=== PATIENT | female | born 1945 | race Caucasian/White ===

== ENCOUNTER → 2018-03-24 14:52 | Outpatient (CLI) | payer MEDICARE, OTHER, SELFPAY ==
--- NOTE | 2018-03-24 14:55 | DI.RAD.S_ITS ---
PROCEDURE: XR FOOT LT MIN 3V INDICATIONS: foot/ankle pain TECHNIQUE: 3 views of the foot were acquired. COMPARISON: None. FINDINGS: Bones: No fractures or dislocations. No suspicious bony lesions. Soft tissues: No tibiotalar joint effusion. Achilles tendon appears normal. IMPRESSION: Moderate osteoarthritis of the first MTP joint, no trauma found, no stress fracture suspected. Dictated by: Maikol Sharif M.D. on 03/24/2018 at 15:30 Approved by: Maikol Sharif M.D. on 03/24/2018 at 15:30
--- NOTE | 2018-03-24 14:55 | DI.RAD.S_ITS ---
PROCEDURE: XR ANKLE LT MIN 3V INDICATIONS: foot/ankle pain TECHNIQUE: 3 views of the ankle were acquired. COMPARISON: [facility], CR, XR FOOT LT MIN 3V, 03/24/2018, 14:38. FINDINGS: Bones: No fractures or dislocations. Ankle mortise is normally aligned. No suspicious bony lesions. Soft tissues: No tibiotalar joint effusion. Achilles tendon appears normal. IMPRESSION: No trauma found. Dictated by: Maikol Sharif M.D. on 03/24/2018 at 15:29 Approved by: Maikol Sharif M.D. on 03/24/2018 at 15:30
== END ==
PROVIDERS: Family Provider Physician Assistant; PCP Physician Assistant; Visit Provider Nurse Practitioner Family
DX: M25.572 Pain in left ankle and joints of left foot (principal); M19.072 Primary osteoarthritis, left ankle and foot
CPT/HCPCS: 73610; 73630

== ENCOUNTER → 2019-12-31 10:52 | Outpatient (CLI) | payer MEDICARE, SELFPAY ==
[2019-12-31 11:12] LABS: Add Manual Diff / Slide Review NO; Basophils Absolute Auto 100 /uL (0-100); Basophils Percent Auto 1.3 % (0-2); Eosinophils Absolute Auto 300 /uL (0-450); Eosinophils Percent Auto 5.3 % (2-4); Hematocrit 37.8 % (36-46); Hemoglobin 12.9 g/dL (12.0-16.0); Lymphocytes Absolute Auto 1600 /uL (1100-4500); Lymphocytes Percent Auto 33.4 % (25-40); Mean Corpuscular HGB Conc 34.1 % (30-36); Mean Corpuscular Hemoglobin 31.9 PG (26-34); Mean Corpuscular Volume 93.8 fL (80-100); Monocytes Absolute Auto 400 /uL (0-900); Monocytes Percent Auto 9.1 % (3-14); Neutrophils Absolute Auto 2400 /uL (1500-7000); Neutrophils Percent Auto 50.9 % (50-75); Platelet Count 285 X10^3/uL (150-400); Red Blood Cell Count 4.03 X10^6/uL (4.0-5.2); Red Cell Distribution Width 12.4 % (11.6-14.8); White Blood Cell Count 4.8 X10^3/uL (4.5-11.0)
[2019-12-31 11:22] LABS: Alanine Aminotransferase 17 IU/L (<35); Albumin 4.4 g/dL (3.5-5.0); Albumin Globulin Ratio 1.6 (1.0-2.8); Alkaline Phosphatase 79 U/L (38-126); Appearance Urine UA CLEAR; Aspartate Aminotransferase 27 IU/L (14-36); BUN Creatinine Ratio 27.8 (6-22); Bilirubin Total 0.6 mg/dL (0.2-1.3); Bilirubin Urine UA NEGATIVE (NEGATIVE); Blood Urea Nitrogen 20 mg/dL (7-17); Calcium 9.3 mg/dL (8.4-10.2); Carbon Dioxide 27 mmol/L (22-32); Chloride 101 mmol/L (98-107); Cholesterol 234 mg/dL (140-199); Color Urine UA YELLOW; Estimated Glomerular Filt Rate > 60.0 mL/min (>60); Globulin 2.8 g/dL (1.7-4.1); Glucose 94 mg/dL (80-110); Glucose Urine UA NEGATIVE (Negative); HDL Cholesterol 82 mg/dL (40-60); HEMOLYSIS < 15 (0-50); Ketones Urine UA NEGATIVE (NEGATIVE); LDL Cholesterol Calculated 135 mg/dL (<100); Leukocyte Esterase Urine UA NEGATIVE (NEGATIVE); Nitrite Urine UA NEGATIVE (Negative); Occult Blood Urine UA TRACE-LYSED (Negative); Potassium 4.2 mmol/L (3.4-5.1); Protein Urine UA NEGATIVE (Negative); Sodium 135 mmol/L (137-145); Total Protein 7.2 g/dL (6.3-8.2); Triglycerides 87 mg/dL (35-150); Urobilinogen Urine UA 0.2 E.U./dL (0.2)
[2019-12-31 11:25] LABS: pH Urine UA 7.5 (4.5-8.0)
== END ==
PROVIDERS: Family Provider Physician Assistant; PCP Registered Nurse; Referring Provider Registered Nurse; Visit Provider Registered Nurse
DX: M81.0 Age-related osteoporosis without current pathological fracture (principal); I10 Essential (primary) hypertension; E78.5 Hyperlipidemia, unspecified
CPT/HCPCS: 36415; 80053; 80061; 81003; 85025

== ENCOUNTER → 2020-01-14 12:56 | Outpatient (CLI) | payer MEDICARE, SELFPAY | PROVIDERS: Family Provider Physician Assistant; PCP Registered Nurse; Referring Provider Registered Nurse; Visit Provider Registered Nurse | DX: M81.0 Age-related osteoporosis without current pathological fracture (principal); Z78.0 Asymptomatic menopausal state; Z82.62 Family history of osteoporosis; Z87.891 Personal history of nicotine dependence | CPT/HCPCS: 77080 ==

== ENCOUNTER → 2020-01-18 09:13 | Outpatient (CLI) | payer MEDICARE, SELFPAY ==
[2020-01-19 11:11] LABS: Fecal Immunochemical Test Negative (Negative)
== END ==
PROVIDERS: Family Provider Physician Assistant; PCP Registered Nurse; Referring Provider Registered Nurse; Visit Provider Registered Nurse
DX: Z12.11 Encounter for screening for malignant neoplasm of colon (principal)
CPT/HCPCS: 82274

== ENCOUNTER → 2020-02-05 13:58 | Outpatient (CLI) | payer MEDICARE, SELFPAY ==
[2020-02-05 16:06] LABS: Vitamin D 25 Hydroxy (D3) 52.9 ng/mL (30.0-100.0)
== END ==
PROVIDERS: Family Provider Physician Assistant; PCP Registered Nurse; Referring Provider Registered Nurse; Visit Provider Registered Nurse
DX: M81.0 Age-related osteoporosis without current pathological fracture (principal)
CPT/HCPCS: 36415; 82306

== ENCOUNTER → 2020-02-11 08:49 | Outpatient (CLI) | payer MEDICARE, SELFPAY ==
--- NOTE | 2020-02-11 08:53 | DIET.PN ---
Dietary Progress Note Assessment: 74y F referred to nutrition for HLD (TC 234 H, LDL 135 H, HDL 82 H) and osteoporosis. Pt desires to make dietary changes to manage cholesterol before going on stains. HT: 5'2 WT: 135# UBW: 135# Labs: TC 234, LDL 135, HDL 82, Vit D 52 WNL Usual Day: 7:30am wakes has 2c black coffee 8am whole milk yogurt, berries and banana or eggs or toast c pb and jam goes to core class (45min) or yoga class and volunteering on Saturday, walks 3-4mi 2-3d/w, tries to bike 3d/w (20-40 miles/w) L: [employer] thin bread c avocado, cheese and lettuce Dinner(6pm): stir fries c chicken and veggies over rice or pasta, bison meatloaf or burgers, sweet potatoes, white rice 3x/w Sn: peanut butter, apple c banana Drinks 2 glasses wine/d Takes Bone Up calcium and K2 supplement each morning as well as D3. Nutrition Diagnosis: altered nutrition related laboratory values r/t insufficient intake of soluble fiber aeb TC 234, LDL 135, food recall low in soluble fiber foods. Interventions: 1. Discussed HLD physiology and factors which affect each number. Pt has high HDL giving her less wiggle room for TC to be WNL. Pt cholesterol and saturated fat intake is not of concern at this time, will focus on increasing soluble fiber in diet. 2. Educated pt on sources of soluble fiber and collaborated c pt on ways to increase in diet. Pt feels her lunches are weak and just thrown together so will target lunchtime meal for increased soluble fiber intake in the form of: beans/lentils, berries, oats, quinoa. Pt has goal to consume 20g soluble fiber daily. 3. Discussed osteoporosis. Pt is doing weight bearing activity and taking appropriate supplements. Pt goal is 1200mg calcium per day through combination of food and supplements. Pt will do food diary for a week to assess calcium intake through food and will make adjustments whether increasing calcium foods or increasing supplement amount. Pt will experiment with taking supps in evening as she eats high calcium breakfast which may be limiting total absorption in stomach as we only absorb 300-500mg at a time. EER: 1200mg calcium, 20g fiber Monitoring/Evaluations: pt will get lipid panel in 6mo and will schedule f/u if needed.
== END ==
PROVIDERS: Family Provider Physician Assistant; PCP Registered Nurse; Referring Provider Registered Nurse; Visit Provider Registered Nurse
DX: E78.5 Hyperlipidemia, unspecified (principal); M81.0 Age-related osteoporosis without current pathological fracture
CPT/HCPCS: 97802

== ENCOUNTER → 2020-07-14 07:40 | Outpatient (CLI) | payer MEDICARE, SELFPAY ==
[2020-07-14] MEDS: COVID-19 VACC #1, MRNA(MOD) 100 MCG/0.5 ML VIAL IM (07:52)
== END ==
PROVIDERS: Family Provider Physician Assistant; PCP Registered Nurse; Visit Provider Internal Medicine
DX: Z23 Encounter for immunization (principal)
CPT/HCPCS: 0011A; 91301

== ENCOUNTER → 2020-08-11 07:34 | Outpatient (CLI) | payer MEDICARE, SELFPAY ==
[2020-08-11] MEDS: COVID-19 VACC #2, MRNA(MOD) 100 MCG/0.5 ML VIAL IM (07:58)
== END ==
PROVIDERS: Family Provider Physician Assistant; PCP Registered Nurse; Visit Provider Internal Medicine
DX: Z23 Encounter for immunization (principal)
CPT/HCPCS: 0012A; 91301

== ENCOUNTER → 2020-09-19 10:18 | Outpatient (CLI) | payer MEDICARE, SELFPAY ==
--- NOTE | 2020-09-19 | DI.MG.S_ITS ---
BILATERAL DIGITAL SCREENING MAMMOGRAM 3D/2D WITH CAD: 09/19/2020 CLINICAL: Routine screening. Comparison is made to exams dated: 09/17/2017 mammogram, 09/08/2015 mammogram, 10/08/2013 mammogram, 04/10/2012 mammogram, and 04/04/2009 mammogram - [facility]. There are scattered fibroglandular elements in both breasts. Current study was also evaluated with a Computer Aided Detection (CAD) system. No significant masses, calcifications, or other findings are seen in either breast. There has been no significant interval change. IMPRESSION: NEGATIVE There is no mammographic evidence of malignancy. A 1 year screening mammogram is recommended. This exam was interpreted at Station ID: [id number]. NOTE: For mammograms, a report in lay terms will be sent to the patient. Approximately 15% of breast malignancies will not be visualized mammographically. In the management of a palpable breast mass, a negative mammogram must not discourage biopsy of a clinically suspicious lesion. Electronically Signed By: Eddie stephen/riley:09/19/2020 11:59:42 letter sent: Normal Exam ACR BI-RADS Category 1: Negative 3341F
== END ==
PROVIDERS: Family Provider Physician Assistant; PCP Registered Nurse; Referring Provider Registered Nurse; Visit Provider Registered Nurse
DX: Z12.31 Encounter for screening mammogram for malignant neoplasm of breast (principal)
CPT/HCPCS: 77063; 77067

== ENCOUNTER → 2021-02-10 09:02 | Outpatient (CLI) | payer MEDICARE, SELFPAY ==
[2021-02-10 09:55] LABS: Add Manual Diff / Slide Review NO; Basophils Absolute Auto 100 /uL (0-100); Basophils Percent Auto 1.2 % (0-2); Eosinophils Absolute Auto 400 /uL (0-450); Eosinophils Percent Auto 7.7 % (2-4); Hematocrit 36.9 % (36-46); Hemoglobin 12.3 g/dL (12.0-16.0); Lymphocytes Absolute Auto 1600 /uL (1100-4500); Lymphocytes Percent Auto 34.5 % (25-40); Mean Corpuscular HGB Conc 33.3 % (30-36); Mean Corpuscular Hemoglobin 31.5 PG (26-34); Mean Corpuscular Volume 94.6 fL (80-100); Monocytes Absolute Auto 500 /uL (0-900); Monocytes Percent Auto 9.7 % (3-14); Neutrophils Absolute Auto 2200 /uL (1500-7000); Neutrophils Percent Auto 46.9 % (50-75); Platelet Count 271 X10^3/uL (150-400); Red Cell Distribution Width 12.4 % (11.6-14.8); White Blood Cell Count 4.6 X10^3/uL (4.5-11.0)
[2021-02-10 10:21] LABS: Alanine Aminotransferase 19 IU/L (<35); Albumin Globulin Ratio 1.4 (1.0-2.8); Alkaline Phosphatase 69 U/L (38-126); Aspartate Aminotransferase 30 IU/L (14-36); BUN Creatinine Ratio 34.9 (6-22); Bilirubin Total 0.6 mg/dL (0.2-1.3); Blood Urea Nitrogen 22 mg/dL (7-17); Carbon Dioxide 27 mmol/L (22-32); Chloride 103 mmol/L (98-107); Cholesterol 236 mg/dL (140-199); Estimated Glomerular Filt Rate > 60.0 mL/min (>60); Globulin 2.9 g/dL (1.7-4.1); Glucose 84 mg/dL (80-110); HDL Cholesterol 74 mg/dL (40-60); HEMOLYSIS < 15 (0-50); LDL Cholesterol Calculated 148 mg/dL (<100); Potassium 4.6 mmol/L (3.4-5.1); Sodium 134 mmol/L (137-145); Total Protein 6.9 g/dL (6.3-8.2); Triglycerides 71 mg/dL (35-150)
[2021-02-10 10:37] LABS: Vitamin D 25 Hydroxy (D3) 55.6 ng/mL (30.0-100.0)
[2021-02-10 10:50] LABS: TSH w/ Reflex to FT4 2.67 uIU/mL (0.47-4.68)
== END ==
PROVIDERS: Family Provider Physician Assistant; PCP Registered Nurse; Referring Provider Registered Nurse; Visit Provider Registered Nurse
DX: R53.83 Other fatigue (principal); I10 Essential (primary) hypertension; M81.0 Age-related osteoporosis without current pathological fracture; E78.5 Hyperlipidemia, unspecified
CPT/HCPCS: 36415; 80053; 80061; 82306; 84443; 85025

== ENCOUNTER → 2021-02-14 12:31 | Outpatient (CLI) | payer MEDICARE, SELFPAY ==
--- NOTE | 2021-02-14 12:33 | DI.US.S_ITS ---
PROCEDURE: US CAROTID DOPPLER BI INDICATIONS: lightheadedness TECHNIQUE: Color and pulse Doppler interrogation was performed of both carotid systems, with image documentation and velocity measurements. COMPARISON: None. FINDINGS: Stenosis calculations are based on SRU (Society of Radiologists in Ultrasound) criteria. The flow velocities and the arterial waveforms are normal within both carotid arterial systems. The estimated degree of internal carotid artery stenosis is less than 50%. Antegrade flow is confirmed within both vertebral arteries. IMPRESSION: Normal. Dictated by: Ministerio Elliott M.D. on 02/14/2021 at 13:52 Approved by: Ministerio Elliott M.D. on 02/14/2021 at 13:53
== END ==
PROVIDERS: Family Provider Physician Assistant; PCP Registered Nurse; Referring Provider Registered Nurse; Visit Provider Registered Nurse
DX: R42 Dizziness and giddiness (principal)
CPT/HCPCS: 93880

== ENCOUNTER → 2022-02-13 11:54 | Outpatient (CLI) | payer MEDICARE, SELFPAY | PROVIDERS: Family Provider Physician Assistant; PCP Nurse Practitioner; Referring Provider Nurse Practitioner; Visit Provider Nurse Practitioner | DX: I10 Essential (primary) hypertension (principal) | CPT/HCPCS: 93005 ==

== ENCOUNTER → 2022-02-15 07:55 | Outpatient (CLI) | payer MEDICARE, SELFPAY ==
[2022-02-15 09:28] LABS: Alanine Aminotransferase 15 IU/L (<35); Albumin Globulin Ratio 1.5 (1.0-2.8); Alkaline Phosphatase 69 U/L (38-126); Aspartate Aminotransferase 26 IU/L (14-36); BUN Creatinine Ratio 21.9 (6-22); Bilirubin Total 0.4 mg/dL (0.2-1.3); Blood Urea Nitrogen 16 mg/dL (7-17); Calcium 8.9 mg/dL (8.4-10.2); Carbon Dioxide 29 mmol/L (22-32); Chloride 103 mmol/L (98-107); Cholesterol 205 mg/dL (140-199); Estimated Glomerular Filt Rate > 60 mL/min (>60); Globulin 2.7 g/dL (1.7-4.1); Glucose 81 mg/dL (80-110); HDL Cholesterol 76 mg/dL (40-60); HEMOLYSIS < 15 (0-50); LDL Cholesterol Calculated 116 mg/dL (<100); Potassium 4.6 mmol/L (3.4-5.1); Sodium 136 mmol/L (137-145); Total Protein 6.7 g/dL (6.3-8.2); Triglycerides 67 mg/dL (35-150)
[2022-02-15 09:30] LABS: Microalbumin Urine Random < 0.6 mg/dL (0-1.6)
[2022-02-15 09:40] LABS: Free T3, Triiodothyronine Free 3.16 pg/mL (2.77-5.27); Free T4, Direct Thyroxine 1.01 ng/dL (0.78-2.19)
[2022-02-15 09:54] LABS: Thyroid Stimulating Hormone 3.35 uIU/mL (0.47-4.68)
[2022-02-16 16:22] LABS: Hep C Virus Ab w/Reflex Quant NEGATIVE s/c (NEGATIVE)
== END ==
PROVIDERS: Family Provider Physician Assistant; PCP Nurse Practitioner; Referring Provider Nurse Practitioner; Visit Provider Nurse Practitioner
DX: E78.5 Hyperlipidemia, unspecified (principal); Z79.899 Other long term (current) drug therapy; Z11.59 Encounter for screening for other viral diseases; I10 Essential (primary) hypertension
CPT/HCPCS: 36415; 80053; 80061; 82043; 82570; 84439; 84443; 84481; 86803

== ENCOUNTER → 2022-02-27 14:13 | Outpatient (CLI) | payer MEDICARE, SELFPAY ==
--- NOTE | 2022-02-27 | DI.MG.S_ITS ---
BILATERAL DIGITAL SCREENING MAMMOGRAM 3D/2D WITH CAD: 02/27/2022 CLINICAL: Routine screening. Comparison is made to exams dated: 09/19/2020 mammogram and 09/17/2017 mammogram - [facility]. There are scattered areas of fibroglandular density in both breasts (category b / 25%-50% glandular tissue). Current study was also evaluated with a Computer Aided Detection (CAD) system. No significant masses, calcifications, or other findings are seen in either breast. There has been no significant interval change. IMPRESSION: NEGATIVE There is no mammographic evidence of malignancy. A 1 year screening mammogram is recommended. Based on the Tyrer Cuzick model (a risk assessment model) the patient's lifetime risk is 3.2% and her 10 year risk is 3.2%. According to the ACR, ACS, and NCCN guidelines, an annual breast MRI exam along with mammogram is recommended if the patient's lifetime risk is 20% or greater. This exam was interpreted at Station ID: [id number]. NOTE: For mammograms, a report in lay terms will be sent to the patient. Approximately 15% of breast malignancies will not be visualized mammographically. In the management of a palpable breast mass, a negative mammogram must not discourage biopsy of a clinically suspicious lesion. Electronically Signed By: Bony slater/riley:02/27/2022 16:54:31 letter sent: Normal Exam ACR BI-RADS Category 1: Negative 3341F
== END ==
PROVIDERS: Family Provider Physician Assistant; PCP Nurse Practitioner; Referring Provider Nurse Practitioner; Visit Provider Nurse Practitioner
DX: Z12.31 Encounter for screening mammogram for malignant neoplasm of breast; M81.0 Age-related osteoporosis without current pathological fracture
CPT/HCPCS: 77063; 77067; 77080

== ENCOUNTER → 2022-03-22 09:02 | Outpatient (CLI) | payer MEDICARE, SELFPAY ==
--- NOTE | 2022-03-22 09:03 | DI.ECHO.S_ITS ---
[facility]---------+ [facility] +---------+ : : [address] : : : : [id number] : : : : Phone: [phone] +---------+ Echocardiogram Report + + :Name: MARY ELLEN SILVA Study Date: 03/22/2022 Height: 62 in : :[facility] ReadingLocation: Weight: 132 lb : : Gender: Female BSA: 1.6 m2 : :: 1945 Age: 76 yrs BP: 152/84 mmHg: :Reason For Study: Hypertension : :Ordering Physician: ELIZABETH, : :TATIANA Performed By: Allan Cadet : :Referring: TATIANA JOHNSON : + + Interpretation Summary The ejection fraction is estimated to be 55-60%. There is mild mitral regurgitation. There is no pericardial effusion. Procedure: A two-dimensional transthoracic echocardiogram with color flow and Doppler was performed. The study quality was technically adequate. There is no prior echocardiogram noted for this patient. The patient was in normal sinus rhythm during the exam. Left Ventricle: The left ventricle is normal in size and wall thickness. Left ventricular systolic function is normal. The ejection fraction is estimated to be 55-60%. There are no focal wall motion abnormalities. Diastolic parameters suggest probable normal left ventricular diastolic function and normal filling pressures. Right Ventricle: The right ventricle is normal in size and function. Atria: Both atria are normal in size. The interatrial septum grossly appears intact with no obvious evidence for an atrial septal defect. Mitral Valve: The mitral valve is normal in structure and function. There is mild mitral regurgitation. Aortic Valve: The aortic valve is normal in structure and function. No aortic regurgitation is present. Tricuspid Valve: The tricuspid valve is normal in structure and function. There is mild tricuspid regurgitation. Pulmonary artery pressures cannot be estimated because of the lack of a measurable TR jet velocity. Pulmonic Valve: The pulmonic valve is normal in structure and function. There is no pulmonic valvular regurgitation. Great Vessels: The aortic root is normal size. The dimensions of the ascending aorta are normal. The IVC is of normal diameter and collapses greater than 50% with a sniff. This suggests a low right atrial pressure of 3 mm Hg. Pericardium/ Pleura There is no pericardial effusion. There is no pleural effusion. MMode/2D Measurements & Calculations LVIDd: 4.8 cm LVOT diam: 1.9 cm LVIDs: 3.3 cm Ao root diam: 3.0 cm FS: 31.3 % asc Aorta Diam: 2.8 cm IVSd: 0.80 cm LVPWd: 0.90 cm LV garsia. diameter/BSA (cm/m^2): 3.0 LV sys. diameter/BSA (cm/m^2): 2.1 LA dimension: 3.2 cm RA long axis: 4.9 cm LA A2 area: 17.4 cm2 LA A4 area: 16.9 cm2 LA length (vol): 5.0 cm LA vol: 50.2 ml LA vol index: 31.3 ml/m2 TAPSE_phl: 3.2 cm Doppler Measurements & Calculations Ao V2 max: 175.0 cm/sec LVOT Max Earnest: 154.0 cm/sec Ao V2 mean: 122.0 cm/sec LV V1 max P.5 mmHg Ao max P.0 mmHg LV V1 VTI: 33.3 cm Ao mean P.0 mmHg SHYANNE(I,D): 2.4 cm2 Ao V2 VTI: 39.8 cm SHYANNE(V,D): 2.5 cm2 sev ratio: 0.84 SHYANNE indexed to BSA (cm^2/m^2): 1.5 MV E max earnest: 88.8 cm/sec SV(LVOT): 94.4 ml MV A max earnest: 82.9 cm/sec MV E/A: 1.1 Med Peak E' Earnest: 8.1 cm/sec E/E' med: 10.9 Lat Peak E' Earnest: 11.6 cm/sec E/E' lat: 7.7 E/e' average: 9.3 MV dec time: 0.25 sec AV VR_phl: 0.88 MV P1/2t-pr_phl: 74.0 msec SHYANNE(VTI)/BSA_phl: 1.5 Reading Physician:02:18 PM
== END ==
PROVIDERS: Family Provider Physician Assistant; PCP Nurse Practitioner; Referring Provider Nurse Practitioner; Visit Provider Nurse Practitioner
DX: I08.1 Rheumatic disorders of both mitral and tricuspid valves (principal); I10 Essential (primary) hypertension
CPT/HCPCS: 93306

== ENCOUNTER → 2022-03-28 10:13 | Outpatient (CLI) | payer MEDICARE, SELFPAY ==
[2022-03-28 11:11] LABS: COVID19 -Nasal RAPID Negative (Negative)
== END ==
PROVIDERS: Family Provider Physician Assistant; PCP Nurse Practitioner; Visit Provider Surgery
DX: Z20.822 Contact with and (suspected) exposure to COVID-19 (principal); Z01.812 Encounter for preprocedural laboratory examination
CPT/HCPCS: 87635; C9803

== ENCOUNTER 2022-03-29 08:59 | Day surgery (SDC) | payer MEDICARE, SELFPAY ==
[2022-03-29 09:11] VITALS: BP 160/77; PULSE 54; RESP 15; TEMP 36.3; O2SAT 100; BMI 23.8
[2022-03-29] MEDS: LACTATED RINGERS 1,000 ML 84 ML IV (09:31)
--- NOTE | 2022-03-29 10:13 | PM.HP.1 ---
History of Present Illness History of Present Illness Date Patient Seen: 03/29/22 Time Patient Seen: 10:13 Chief complaint: Colonoscopy Narrative: Ashlyn is a 76-year-old woman who had a colonoscopy about 10 years ago that was normal. She has no known family history of colon cancer. Patient History Medical History Lightheadedness Osteopenia (~10/2006) Osteoporosis (09/13/15) Osteoporosis (~03/2012) Post-menopausal osteoporosis Wrist fracture, left (09/2017) Surgical History H/O arthroscopy of knee (Unknown) History of bilateral tubal ligation (Unknown) S/P wrist surgery (09/2017) Family & Social History Social History: household members spouse Tobacco & Substance use: Smoking Status Former smoker alcohol intake current alcohol intake frequency 0-2 drinks per day Substance Use Type does not use Meds Home Medications and Allergies Home Medications Medication Instructions Recorded Confirmed Type Gentian See Rx Instructions .Route 02/13/22 03/29/22 History .COMPLEX PRN food absorption Vitamin D3 See Rx Instructions .Route .COMPLEX 02/13/22 03/29/22 History calcium See Rx Instructions .Route .COMPLEX 02/13/22 03/29/22 History losartan 50 mg tablet 50 mg PO DAILY #90 tabs 02/13/22 03/29/22 Rx magnesium citrate 133 mg PO .HS insomni 02/13/22 03/29/22 History sodium sul 1.479 gram-potas ch See Rx Instructions PO PER PKG DIR 03/19/22 Rx 0.188 gram-magnes sul 0.225 gram #24 tabs tablet (Sutab) Allergies Allergy/AdvReac Type Severity Reaction Status Date / Time No Known Drug Allergies Allergy Verified 03/29/22 09:26 Exam Vital Signs (past 8 hours): - 03/29/22 09:11 Temperature 97.4 F L Pulse Rate 54 L Respiratory Rate 15 Blood Pressure 160/77 H Pulse Oximetry 100 Oxygen Delivery Method Room Air Oxygen Delivery Method Room Air Const General: healthy appearing Assessment & Plan Assessment and plan (1) Colon cancer screening: Status: Acute Plan 76-year-old woman here for colon cancer screening. We reviewed the risks and benefits of colonoscopy and she would like to proceed. Time Spent With Patient Critical Care time: I spent a total of [] minutes of critical care time on this patient's care today; this time is exclusive of procedural time.
[2022-03-29] MEDS: fentaNYL 100 MCG/2 ML INJ 175 MCG IV (10:43)
[2022-03-29] MEDS: MIDAZOLAM 5 MG/5 ML VIAL 7 MG IV (10:44)
--- NOTE | 2022-03-29 10:52 | PM.OP.COLON ---
Operative Date/Time/Diagnoses Date of procedure: 03/29/22 Time of procedure: 10:52 Pre-op diagnosis: Colon cancer screening Post-op diagnosis: same Procedure & Clinicians Study performed: Colonoscopy Same procedure as scheduled: Yes Surgeon: Patrick Husain Procedure Notes Procedure in detail: Surgeon: Patrick Husain MD Procedure: The patient was brought to the endoscopy suite, placed in left lateral decubitus position. The patient was connected to monitoring devices. A time-out was performed. Sedation was administered. Once the patient was adequately sedated, a digital rectal exam was performed and was normal. The scope was then inserted and advanced to the cecum where the appendiceal orifice was identified and photographed. The scope was then slowly withdrawn over greater than 6 minutes. The mucosa was thoroughly inspected. No polyps were found. The scope was retroflexed in the rectum. There were some internal hemorrhoids. The scope was straightened and removed. The patient was awakened and brought to recovery. Versed: 7 mg Fentanyl: 175 mcg EBL: 0 Findings: Normal colon Scope withdrawal time: 7 Sedation minutes: 25 Post-procedure Disposition: PACU
[2022-03-29 10:53] VITALS: BP 122/69; PULSE 56; RESP 11; TEMP 35.9; O2SAT 98
[2022-03-29 10:58] VITALS: BP 126/72; PULSE 65; RESP 17; O2SAT 99
[2022-03-29 11:03] VITALS: BP 142/70; PULSE 53; RESP 16; O2SAT 99
[2022-03-29 11:08] VITALS: BP 138/89; PULSE 54; RESP 18; TEMP 36.2; O2SAT 97
--- NOTE | 2022-03-29 11:15 | SUR.PHASEII ---
Report received. VS stable. Patient reported feeling lightheaded upon HOB elevation. Will continue to monitor. Call light provided.
[2022-03-29 11:27] VITALS: BP 155/85; PULSE 58
== END 2022-03-29 11:27 | disposition home or self-care (01) ==
PROVIDERS: Family Provider Physician Assistant; PCP Nurse Practitioner; Referring Provider Surgery; Visit Provider Surgery
PROC: 0DJD8ZZ Inspection of Lower Intestinal Tract, Via Natural or Artificial Opening Endoscopic (ICD-10-PCS; CPT 45378; principal; 2022-03-29 10:00)
DX: Z12.11 Encounter for screening for malignant neoplasm of colon (principal); K64.8 Other hemorrhoids
CPT/HCPCS: G0121; 99152; 99153; J2250; J3010

== ENCOUNTER → 2022-11-02 10:11 | Outpatient (CLI) | payer MEDICARE, SELFPAY ==
--- NOTE | 2022-11-02 10:12 | DI.US.S_ITS ---
PROCEDURE: US ABDOMEN LIMITED INDICATIONS: LEFT INGUINAL LUMP TECHNIQUE: Real-time focused scanning was performed of the abdomen, with image documentation. COMPARISON: None. FINDINGS: There is a fascial defect in the left inguinal area measuring 1.8 cm in width with protrusion of fat and shadowing bowel gas. During Valsalva maneuver, there is further protrusion of intra-abdominal fat and air containing bowel. At rest, herniation of bowel partially reduces. There is no fluid in the hernia sac. IMPRESSION: 1. Fat, and small bowel containing, partially reducible, left inguinal hernia. There may be a chronic Wise's hernia given presence of shadowing at rest. 2. If further detail is needed, CT of the pelvis is recommended. Dictated by: Julissa Almeida M.D. on 11/02/2022 at 12:53 Approved by: Julissa Almeida M.D. on 11/02/2022 at 12:57
== END ==
PROVIDERS: Family Provider Physician Assistant; PCP Nurse Practitioner; Referring Provider Family Medicine; Visit Provider Family Medicine
DX: K40.90 Unilateral inguinal hernia, without obstruction or gangrene, not specified as recurrent (principal)
CPT/HCPCS: 76705

== ENCOUNTER → 2023-05-07 08:03 | Outpatient (CLI) | payer MEDICARE, SELFPAY ==
[2023-05-07 09:29] LABS: Alanine Aminotransferase 18 IU/L (<35); Albumin 4.1 g/dL (3.5-5.0); Albumin Globulin Ratio 1.5 (1.0-2.8); Alkaline Phosphatase 80 U/L (38-126); Aspartate Aminotransferase 25 IU/L (14-36); BUN Creatinine Ratio 28.8 (6-22); Bilirubin Total 0.7 mg/dL (0.2-1.3); Blood Urea Nitrogen 19 mg/dL (7-17); Calcium 9.4 mg/dL (8.4-10.2); Carbon Dioxide 28 mmol/L (22-32); Chloride 99 mmol/L (98-107); Cholesterol 235 mg/dL (140-199); Estimated Glomerular Filt Rate > 60 mL/min (>60); Globulin 2.8 g/dL (1.7-4.1); Glucose 82 mg/dL (80-110); HDL Cholesterol 81 mg/dL (40-60); HEMOLYSIS < 15 (0-50); LDL Cholesterol Calculated 136 mg/dL (<100); Potassium 4.6 mmol/L (3.4-5.1); Sodium 134 mmol/L (137-145); Total Protein 6.9 g/dL (6.3-8.2); Triglycerides 88 mg/dL (35-150)
[2023-05-07 09:53] LABS: Free T3, Triiodothyronine Free 3.34 pg/mL (2.77-5.27); Free T4, Direct Thyroxine 1.02 ng/dL (0.78-2.19)
[2023-05-07 10:06] LABS: Thyroid Stimulating Hormone 2.93 uIU/mL (0.47-4.68)
[2023-05-07 11:41] LABS: Microalbumi Creatinin Ratio Ur 11.3 ug/mg CR (<30); Microalbumin Urine Random 1.3 mg/dL (0-1.6)
== END ==
LOC: LAB 08:05 → RESP 08:06
PROVIDERS: Family Provider Physician Assistant; PCP Nurse Practitioner; Referring Provider Nurse Practitioner; Visit Provider Nurse Practitioner
DX: I10 Essential (primary) hypertension (principal); E78.5 Hyperlipidemia, unspecified; M81.0 Age-related osteoporosis without current pathological fracture; Z79.899 Other long term (current) drug therapy
CPT/HCPCS: 36415; 80053; 80061; 82043; 82570; 84439; 84443; 84481; 93005; 93010

== ENCOUNTER → 2023-05-28 08:08 | Outpatient (CLI) | payer MEDICARE, SELFPAY ==
--- NOTE | 2023-05-28 08:11 | DI.ECHO.S_ITS ---
[facility]---------+ [facility] +---------+ : : [address] : : : : [id number] : : : : Phone: [phone]---------+ Echocardiogram Report + + :Name: MARY ELLEN SILVA Study Date: 05/28/2023 Height: 62 in : :[facility] ReadingLocation: Weight: 135 lb : : Gender: Female BSA: 1.6 m2 : :: 1945 Age: 77 yrs BP: 132/76 mmHg: :Reason For Study: HYPERTENSION : :Ordering Physician: ELIZABETH, : :TATIANA Performed By: Adwoa Abel : :Referring: TATIANA JOHNSON : + + Interpretation Summary The left ventricle is normal in size and wall thickness. The ejection fraction is estimated to be 55-60%. Left ventricular wall motion is normal. Diastolic parameters suggest a relaxation abnormality of the left ventricle, consistent with probable normal filling pressures. The right ventricle is normal in size and function. The left atrium is mildly dilated. There is no significant valvular heart disease. The aortic root is normal size. The interatrial septum is aneurysmal but is grossly intact with no obvious evidence for an atrial septal defect. Procedure: A two-dimensional transthoracic echocardiogram with color flow and Doppler was performed. The study quality was technically adequate. Comparison is made with the echocardiogram of 03/22/2022. The patient was in sinus rhythm with heart rates between 58-76 bpm during the exam. Left Ventricle: The left ventricle is normal in size and wall thickness. The ejection fraction is estimated to be 55-60%. Left ventricular wall motion is normal. Diastolic parameters suggest a relaxation abnormality of the left ventricle, consistent with probable normal filling pressures. Right Ventricle: The right ventricle is normal in size and function. Atria: The left atrium is mildly dilated. Right atrial size is normal. The interatrial septum is aneurysmal but is grossly intact with no obvious evidence for an atrial septal defect. Mitral Valve: The mitral valve is normal in structure and function. There is trace mitral regurgitation. Aortic Valve: The aortic valve opens well. There is no aortic valve stenosis. No aortic regurgitation is present. Tricuspid Valve: The tricuspid valve is normal in structure and function. There is trace tricuspid regurgitation. Pulmonic Valve: The pulmonic valve leaflets are thin and pliable; valve motion is normal. There is a trace or physiologic amount of pulmonic regurgitation. There is no significant valvular heart disease. Great Vessels: The aortic root is normal size. The dimensions of the ascending aorta are normal. The IVC is of normal diameter and collapses greater than 50% with a sniff. This suggests a low right atrial pressure of 3 mm Hg. Pericardium/ Pleura There is no pericardial effusion. There is no pleural effusion. MMode/2D Measurements & Calculations LVIDd: 4.3 cm LVOT diam: 1.9 cm LVIDs: 2.7 cm Ao root diam: 2.8 cm FS: 37.3 % asc Aorta Diam: 3.1 cm IVSd: 0.96 cm Ao Arch Diam (Prox Trans): 2.4 cm LVPWd: 0.87 cm LV garsia. diameter/BSA (cm/m^2): 2.7 LV sys. diameter/BSA (cm/m^2): 1.7 LA A2 area: 21.7 cm2 RA long axis: 4.7 cm LA A4 area: 15.6 cm2 RA area: 14.8 cm2 LA length (vol): 5.0 cm RA vol: 39.6 ml LA vol: 57.7 ml RA : 24.5 ml/m2 LA vol index: 35.7 ml/m2 IVC diam: 1.0 cm RVD1 (basal): 3.6 cm RVD2 (mid): 2.7 cm TAPSE: 2.2 cm Doppler Measurements & Calculations Ao V2 max: 164.7 cm/sec LVOT Max Earnest: 125.4 cm/sec Ao V2 mean: 113.8 cm/sec LV V1 max P.3 mmHg Ao max P.8 mmHg LV V1 VTI: 25.9 cm Ao mean P.8 mmHg SHYANNE(I,D): 2.2 cm2 Ao V2 VTI: 32.0 cm SHYANNE(V,D): 2.1 cm2 sev ratio: 0.81 SHYANNE indexed to BSA (cm^2/m^2): 1.4 MV E max earnest: 60.2 cm/sec PA V2 max: 93.3 cm/sec MV A max earnest: 72.6 cm/sec PA V2 mean: 68.2 cm/sec MV E/A: 0.83 PA mean P.0 mmHg Med Peak E' Earnest: 8.0 cm/sec PA pr(Accel): 37.9 mmHg E/E' med: 7.5 Lat Peak E' Earnest: 8.3 cm/sec E/E' lat: 7.2 E/e' average: 7.4 MV dec time: 0.26 sec SV(LVOT): 70.7 ml Reading Physician:04:32 PM
--- NOTE | 2023-05-28 08:11 | DI.MG.S_ITS ---
BILATERAL DIGITAL SCREENING MAMMOGRAM 3D/2D WITH CAD: 05/28/2023 CLINICAL: Routine screening. Comparison is made to exams dated: 02/27/2022 mammogram, 09/19/2020 mammogram, and 09/17/2017 mammogram - . There are scattered areas of fibroglandular density in both breasts (category b / 25%-50% glandular tissue). Current study was also evaluated with a Computer Aided Detection (CAD) system. No significant masses, calcifications, or other findings are seen in either breast. There has been no significant interval change. IMPRESSION: NEGATIVE There is no mammographic evidence of malignancy. A 1 year screening mammogram is recommended. Based on the Tyrer Cuzick model (a risk assessment model) the patient's lifetime risk is 2.9% and her 10 year risk is 0.0%. According to the ACR, ACS, and NCCN guidelines, an annual breast MRI exam along with mammogram is recommended if the patient's lifetime risk is 20% or greater. This exam was interpreted at Station ID: [id number]. NOTE: For mammograms, a report in lay terms will be sent to the patient. Approximately 15% of breast malignancies will not be visualized mammographically. In the management of a palpable breast mass, a negative mammogram must not discourage biopsy of a clinically suspicious lesion. Electronically Signed By: Julissa reddy/riley:05/28/2023 12:37:38 letter sent: Normal Exam ACR BI-RADS Category 1: Negative 3341F
== END ==
PROVIDERS: Family Provider Physician Assistant; PCP Nurse Practitioner; Referring Provider Nurse Practitioner; Visit Provider Nurse Practitioner
DX: Z12.31 Encounter for screening mammogram for malignant neoplasm of breast (principal); I10 Essential (primary) hypertension; E78.5 Hyperlipidemia, unspecified; M81.0 Age-related osteoporosis without current pathological fracture; Z79.899 Other long term (current) drug therapy
CPT/HCPCS: 77063; 77067; 93306

== ENCOUNTER → 2023-09-30 15:20 | Outpatient (CLI) | payer MEDICARE, SELFPAY ==
[2023-09-30 17:08] LABS: Magnesium 2.1 mg/dL (1.6-2.3)
[2023-09-30 17:37] LABS: Thyroid Stimulating Hormone 2.62 uIU/mL (0.47-4.68)
== END ==
LOC: LAB 15:22
PROVIDERS: Family Provider Physician Assistant; PCP Nurse Practitioner; Referring Provider Internal Medicine Cardiovascular Disease; Visit Provider Internal Medicine Cardiovascular Disease
DX: I10 Essential (primary) hypertension (principal)
CPT/HCPCS: 36415; 83735; 84443

== ENCOUNTER → 2023-10-24 14:10 | Outpatient (CLI) | payer MEDICARE, SELFPAY ==
--- NOTE | 2023-10-24 14:11 | DI.US.S_ITS ---
PROCEDURE: US CAROTID DOPPLER BI INDICATIONS: BRUIT LEFT CAROTID TECHNIQUE: Color and pulse Doppler interrogation was performed of both carotid systems, with image documentation and velocity measurements. COMPARISON: [facility], [place], US CAROTID DOPPLER BI, 02/14/2021, 11:59. FINDINGS: Stenosis calculations are based on SRU (Society of Radiologists in Ultrasound) criteria. Right side: Brachial blood pressure: 163/72 mm Hg. Common carotid artery peak systolic velocity: 99 cm/sec. Internal carotid artery peak systolic velocity: 72 cm/sec. Internal carotid artery end diastolic velocity: 20 cm/sec. External carotid artery peak systolic velocity: 66 cm/sec. ICA/CCA peak systolic ratio: 0.9 . Snowden scale imaging description: No atheromatous plaque Percent internal carotid artery stenosis: No stenosis. Vertebral artery: Flow direction is antegrade. Left side: Brachial blood pressure: 151/75 mm Hg. Common carotid artery peak systolic velocity: 75 cm/sec. Internal carotid artery peak systolic velocity: 100 cm/sec. Internal carotid artery end diastolic velocity: 33 cm/sec. External carotid artery peak systolic velocity: 56 cm/sec. ICA/CCA peak systolic ratio: 1.3 . Snowden scale imaging description: No plaque or calcification. Percent internal carotid artery stenosis: Less than 50% stenosis. Vertebral artery: Flow direction is antegrade. IMPRESSION: No stenosis. Dictated by: Carolina Bentley M.D. on 10/24/2023 at 17:12 Approved by: Carolina Bentley M.D. on 10/24/2023 at 17:14
== END ==
LOC: US 14:11
PROVIDERS: Family Provider Physician Assistant; PCP Nurse Practitioner; Referring Provider Internal Medicine Cardiovascular Disease; Visit Provider Internal Medicine Cardiovascular Disease
DX: R09.89 Other specified symptoms and signs involving the circulatory and respiratory systems (principal)
CPT/HCPCS: 93880

== ENCOUNTER 2024-05-05 10:06 | Day surgery (SDC) | payer MEDICARE, SELFPAY ==
[2024-05-01 07:44] VITALS: BMI 26.3
[2024-05-05] VITALS (8 sets, daily range): BP systolic 134–160; BP diastolic 56–84; PULSE 61–82; RESP 13–22; TEMP 36.1–36.7; O2SAT 96–100; BMI 25.0
[2024-05-05] MEDS: ACETAMINOPHEN 325 MG TABLET 975 MG PO (10:22)
[2024-05-05] MEDS: LACTATED RINGERS 1,000 ML 42 ML IV (10:23)
--- NOTE | 2024-05-05 11:12 | PM.HP.1 ---
History of Present Illness History of Present Illness Date Patient Seen: 05/05/24 Time Patient Seen: 11:12 Chief complaint: Left Laparoscopic Inguinal Hernia Repair Narrative: Ashlyn is 78 year old woman with a reducible left inguinal hernia. See office note from July for details. [facility] Medical History Pulmonic regurgitation Atrial septal aneurysm Post-menopausal osteoporosis Lightheadedness Wrist fracture, left (09/2017) Osteoporosis (~03/2012) Osteopenia (~10/2006) Osteoporosis (09/13/15) Surgical History H/O arthroscopy of knee (Unknown) History of bilateral tubal ligation (Unknown) S/P wrist surgery (09/2017) Social History household members: spouse Smoking Status: Former smoker second hand exposure: No alcohol intake: current substance use type: does not use Meds Home Medications and Allergies Home Medications Medication Instructions Recorded Confirmed Type Estriol 1mg Vaginal Abigail See Rx Instructions .Route 05/06/23 05/05/24 Rx .COMPLEX #30 ea losartan 50 mg tablet 50 mg PO DAILY #90 tabs 05/06/23 05/05/24 Rx Allergies Allergy/AdvReac Type Severity Reaction Status Date / Time No Known Drug Allergies Allergy Verified 05/05/24 10:08 Exam Vital Signs (past 8 hours): - 05/05/24 10:39 Temperature 97.6 F Pulse Rate 61 Respiratory Rate 16 Blood Pressure 160/84 H Pulse Oximetry 100 Oxygen Delivery Method Room Air Oxygen Delivery Method Room Air Const General: No acute distress Resp Effort & Inspection: normal respiratory effort Assessment & Plan Assessment and plan (1) Left inguinal hernia: Status: Acute Plan Laparoscopic left inguinal hernia repair with mesh. Time-Based Coding :: [TOTAL MINUTES] spent with patient and on the chart (including review of chart, obtaining history, exam, reviewing outside data, placing orders, documenting exam and treatment plan, and counseling patient) on [DATE].
--- NOTE | 2024-05-05 11:36 | SUR.OPER ---
Supine on padded OR bed, head on pillow, arms padded and tucked at sides, PINK PAD UNDER PATIENT, legs uncrossed, safety belt at thigh, tape over blanket over lower legs .
[2024-05-05] MEDS: CEFAZOLIN 2 GM/100 ML PREMIX 100 ML IV (11:51)
--- NOTE | 2024-05-05 13:20 | PM.OP.1 ---
Operative Date/Time/Diagnoses Date of procedure: 05/05/24 Time of procedure: 13:20 Pre-op diagnosis: Left inguinal hernia Post-op diagnosis: same Procedure & Clinicians Procedure: Laparoscopic left inguinal hernia repair with mesh Same procedure as scheduled: Yes Surgeon: Patrick Husain Anesthesia Type: General Operative Notes Procedure in detail: The patient was given preoperative antibiotics. The patient was brought to the operating room, placed on the table in the supine position with the arms tucked and general anesthesia was induced. The abdomen was prepped and draped in the usual fashion. A time-out was performed. A 1 cm transverse incision was created superior to the umbilicus and dissection was carried down to the fascia. The fascia was grasped with a Kadi clamp to elevate the abdominal wall. The fascia was scored transversely with cautery. A Peon clamp was used to mcintosh the peritoneum. The Gallo port was placed and the abdomen was insufflated to 15 mmHg. The camera was inserted, there was no evidence of any injury from the entry. There was an indirect left inguinal hernia. 5 mm ports were placed under direct vision in the mid left and mid right abdomen. The patient was positioned in Trendelenburg. We created left peritoneal flap. The peritoneum was dissected off the left round ligament and the Bryson's ligament was exposed. A large left Bard mesh was brought in and placed over the defect with the medial edge against Bryson's ligament. We then closed the peritoneal flap with a running 3-0 barbed suture. We took one last look around the abdomen and saw no other abnormalities. The suture was removed and accounted for. The 5 mm ports were removed under direct vision. The abdomen was desufflated. The Gallo port was removed. Additional local was injected into the fascia and the fascial incision was closed with 2 interrupted 0 Vicryl sutures. The skin incisions were closed with 4 Monocryl, Steri-Strips and Band-Aids. Post-operative Condition: stable Disposition: PACU
[2024-05-05] MEDS: OXYCODONE IR 5 MG TABLET PO (13:32)
[2024-05-05] MEDS: hydrOXYzine 50 MG/ML INJ 25 MG IM (13:44)
== END 2024-05-05 14:18 | disposition home or self-care (01) ==
PROVIDERS: Family Provider Physician Assistant; PCP Family Medicine; Referring Provider Surgery; Visit Provider Surgery
PROC: 0YQ64ZZ Repair Left Inguinal Region, Percutaneous Endoscopic Approach (ICD-10-PCS; CPT 49650; principal; 2024-05-05 11:00)
DX: K40.90 Unilateral inguinal hernia, without obstruction or gangrene, not specified as recurrent (principal)
CPT/HCPCS: 49650; J0690; J1100; J2405; J2704; J3010; J3410

== ENCOUNTER → 2024-05-12 08:44 | Outpatient (CLI) | payer MEDICARE, SELFPAY ==
[2024-05-12 10:57] LABS: Cholesterol 239 mg/dL (140-199); HDL Cholesterol 90 mg/dL (40-60); LDL Cholesterol Calculated 133 mg/dL (<100); Triglycerides 79 mg/dL (35-150)
[2024-05-12 15:47] LABS: Hemoglobin A1C% w Est Avg Glu 5.7 % (4.0-6.0)
== END ==
PROVIDERS: Family Provider Physician Assistant; PCP Family Medicine; Referring Provider Family Medicine; Visit Provider Family Medicine
DX: Z13.1 Encounter for screening for diabetes mellitus (principal); E78.5 Hyperlipidemia, unspecified
CPT/HCPCS: 36415; 80061; 83036